=== PATIENT | male | born 2000 | race Caucasian/White ===

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

== ENCOUNTER 2021-01-21 16:21 | Emergency (ER) | payer MEDICAID ==
[2021-01-21 16:31] VITALS: BP 155/100; PULSE 98; O2SAT 99
[2021-01-21] MEDS ORDERED: XYLOCAINE VISCOUS 2% 20 ML CUP PO ONE (16:32)
[2021-01-21] MEDS ORDERED: SILVADENE 50 GM TP STA (16:32)
[2021-01-21] MEDS ORDERED: PERCOCET TABLET 5/325MG PO ONE (16:34)
[2021-01-21] MEDS ORDERED: SILVADENE 50 GM TP ONE (16:35)
[2021-01-21] MEDS ORDERED: XYLOCAINE HCl Viscous ONE (16:35)
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
[2021-01-21] MEDS ORDERED: PERCOCET TABLET 5/325MG ONE (16:52)
== END 2021-01-21 17:14 | disposition home or self-care (01) ==
LOC: ED 16:21
DX: T23.192A Burn of first degree of multiple sites of left wrist and hand, initial encounter (principal); X10.1XXA Contact with hot food, initial encounter
CPT/HCPCS: 99283; A9270-GY

== ENCOUNTER 2024-03-02 22:12 | Emergency (ER) | payer SELFPAY ==
[2024-03-02 22:29] VITALS: TEMP 98.3
[2024-03-02] MEDS ORDERED: Zofran 4 MG/2 ML VIAL ONE (22:41)
[2024-03-02] MEDS ORDERED: Sodium Chloride 0.9% 1000 ML 1,000 ML ONE (22:41)
[2024-03-02] MEDS: Sodium Chloride 0.9% 1000 ML 1,000 ML IV STA (22:43)
[2024-03-02] MEDS: Zofran 4 MG/2 ML VIAL IV ONE (22:43)
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
[2024-03-02 22:49] LABS: BASOPHIL % 0.3 % (0.2-1.2); Basophil (Absolute #) 0.04 x10^3/uL (0.01-0.08); Eosinophil % 0.3 % (0.8-7.0); Eosinophil (Absolute #) 0.04 x10^3/uL (0.04-0.54); Hematocrit 46.5 % (40.1-51.0); Hemoglobin 16.1 g/dL (13.7-17.5); IMMATURE GRAN # 0.07 x10^3u/L (0.001-0.031); IMMATURE GRAN % 0.6 % (0.001-0.429); Lymphocyte (Absolute #) 0.93 x10^3/uL (1.32-3.57); Lymphocytes % 8.1 % (21.8-53.1); Mean Cell Volume 88.2 fL (79.0-92.2); Mean Corpuscular Hemoglobin 30.6 pg (25.7-32.2); Mean Corpuscular Hgb Concent. 34.6 g/dL (32.3-36.5); Mean Platelet Volume 10.1 fL (9.4-12.4); Monocyte (Absolute #) 1.38 x10^3/uL (0.30-0.82); Neutrophil % 78.7 % (34.0-67.9); Platelet Count 296 x10^3/uL (163-337); Red Blood Count 5.27 x10^6/uL (4.63-6.08); Red Cell Distribution Width 12.6 % (11.6-14.4); White Blood Count 11.5 x10^3/uL (4.23-9.07)
[2024-03-02 23:01] LABS: ALBUMIN 4.6 g/dL (3.5-5.0); ANION GAP 11.8 MEQ/L (5-15); BILIRUBIN,TOTAL 0.6 mg/dL (0.2-1.3); Calcium 9.3 mg/dL (8.4-10.2); Creatinine 1 1.09 mg/dL (0.66-1.25); EST GLOMERULAR FILTRATION RATE 98.4 ML/MIN; Potassium 3.9 mmol/L (3.5-5.1); Total Protein 7.9 g/dL (6.3-8.2)
[2024-03-02 23:34] VITALS: BP 113/84; PULSE 90; RESP 18
[2024-03-02 23:37] VITALS: O2SAT 95
== END 2024-03-02 23:59 | disposition home or self-care (01) ==
LOC: ED 22:12
DX: K52.9 Noninfective gastroenteritis and colitis, unspecified (principal); R11.2 Nausea with vomiting, unspecified; Z72.0 Tobacco use
CPT/HCPCS: 36415; 80053; 85025; 96360; 96374; 99284; J2405